=== PATIENT | male | born 1955 | race Caucasian/White ===

== ENCOUNTER 2024-01-25 21:12 | Inpatient (IN) | payer MEDICARE, SELFPAY ==
[2024-01-25] VITALS (16 sets, daily range): BP systolic 171–223; BP diastolic 90–146; PULSE 96–144; RESP 20–28; TEMP 36.6–37.2; O2SAT 95–99; BMI 21.3; BMI 20.6
[2024-01-25] MEDS: 0.9 % SODIUM CHLORIDE 1000 ml 1,000 ML IV (21:35)
[2024-01-25] MEDS: LORazepam 2 MG/ML inj 1 MG IVP ×2 (21:35→22:19)
[2024-01-25 21:48] LABS: Troponin, Point-of-Care* 0.01 ng/ml (0.01-0.04)
[2024-01-25 21:51] LABS: Lactate* 8.1 mmol/L (0.5-1.9)
[2024-01-25 22:04] LABS: Albumin* 4.9 g/dL (3.3-5.0); Chloride* 101 mmol/L (96-114)
[2024-01-25 22:05] LABS: Potassium* 3.3 mmol/L (3.6-5.1); Sodium* 140 mmol/L (135-149)
[2024-01-25 22:07] LABS: Anion Gap 18 mEq/L (7-15); Carbon Dioxide* 21 mmol/L (20-32); Creatinine* 0.7 mg/dL (0.5-1.5); Est. Creatinine Clearance* 59.98; Estimated Glomerular Filt Rate 99 ml/min
[2024-01-25 22:08] LABS: Alanine Aminotransferase* 56 U/L (4-50); Alkaline Phosphatase* 119 U/L (40-150); Aspartate Amino Transferase* 122 U/L (12-35); Bilirubin Direct* 0.3 mg/dL (0.0-0.5); Bilirubin Total* 2.3 mg/dL (0.1-1.5); Blood Urea Nitrogen* 8 mg/dL (7-30); Glucose* 178 mg/dL (60-115); Total Protein* 8.7 g/dL (6.0-8.3)
--- NOTE | 2024-01-25 22:08 | ED.GENADULT ---
HPI - General Adult General Date Seen: 01/25/24 Chief complaint: Dizziness/Vertigo Stated complaint: dizzy, shaking Time Seen by Provider: 01/25/24 21:39 Source: patient Mode of arrival: ambulatory Limitations: no limitations History of Present Illness HPI narrative: Patient is a 68-year-old male with no pertinent medical problems presenting to the emergency department for shakiness and feeling unsteady. He states started yesterday he was feeling very tired and dizzy. The dizziness has since resolved but by about 15:00 today he started noticing the hand tremors. In triage his heart rate was in the 140s and he was hypertensive. Patient admits to being an alcoholic and says he has been drinking heavily for decades. Says he drinks 3 pt of vodka a week. Still has not had any healing drink since Tuesday. He has never had symptoms like this before he states. Does state that he has gone longer periods of time without drinking without any side effects. Denies fevers, chills, chest pain, shortness of breath, weakness, abdominal pain, diarrhea, constipation, headache, vision changes. Related Data Home Medications Medication Instructions Recorded Confirmed No Known Home Medications 01/25/24 01/25/24 Allergies Allergy/AdvReac Type Severity Reaction Status Date / Time No Known Drug Allergies Allergy Verified 01/25/24 21:21 Review of Systems Status of ROS: Reports: 10 or more systems reviewed and unremarkable except as noted in History and below [facility] Social History Smoking Status: Current every day smoker What tobacco products do you use: cigarettes How often do you have a drink containing alcohol: 4 or more times a week How many standard drinks containing alcohol do you have on a typical day: 3 or 4 AUDIT-C Alcohol total score: 5 Non-prescribed substance use: denies use Exam Narrative: Exam Narrative: Const: Well-nourished, Well-developed, tremulous worsen the hand Eyes: PERRL, no conjunctival injection, and symmetrical lids HENT: Atraumatic external nose and ears. Moist mucous membranes. Neck: Symmetric, trachea midline, No thyromegaly. CVS: Tachycardic, No murmurs or gallops. Peripheral pulses 2+ and equal in all extremities RESP: Unlabored respiratory effort. Clear to auscultation bilaterally. GI: Nontender/Nondistended, No rebound or guarding. MSK:Extremities w/o deformity, Normal Active ROM Skin: Warm, Dry. No rashes or lesions. Neuro: Normal Muscle tone, No focal neurological deficits. Psych: Awake, Alert, & Oriented x3. Appropriate mood and affect. Const: Vital Signs, click to edit/add: Vital Signs - 24 hr 01/25/24 21:19 01/25/24 21:42 01/25/24 21:45 Temperature 97.9 F Pulse Rate 113 H 111 H Pulse Rate [Pulse Oximeter] 144 H Respiratory Rate 28 H Blood Pressure Blood Pressure [Ri ght Upper Arm] 180/123 H Pulse Oximetry 98 98 98 Oxygen Delivery Me thod Room Air 01/25/24 21:47 01/25/24 21:50 01/25/24 22:00 Temperature Pulse Rate 106 H 109 H Pulse Rate [Pulse Oximeter] Respiratory Rate 24 Blood Pressure 186/104 H Blood Pressure [Ri ght Upper Arm] Pulse Oximetry 98 98 99 Oxygen Delivery Me thod Room Air 01/25/24 22:03 01/25/24 22:04 01/25/24 22:15 Temperature Pulse Rate 104 H 102 H 98 Pulse Rate [Pulse Oximeter] Respiratory Rate Blood Pressure 223/146 H Blood Pressure [Ri ght Upper Arm] Pulse Oximetry 98 97 98 Oxygen Delivery Me thod 01/25/24 22:16 01/25/24 22:30 01/25/24 22:32 Temperature Pulse Rate 99 96 103 H Pulse Rate [Pulse Oximeter] Respiratory Rate Blood Pressure 173/91 H 171/90 H Blood Pressure [Ri ght Upper Arm] Pulse Oximetry 97 98 98 Oxygen Delivery Me thod Course Vital Signs Vital signs: Initial Vital Signs Temperature 97.9 F 01/25/24 21:19 Temperature Source Temporal Artery Scan 01/25/24 21:19 Pulse Rate 144 H 01/25/24 21:19 Respiratory Rate 28 H 01/25/24 21:19 Blood Pressure 180/123 H 01/25/24 21:19 Blood Pressure Mean 142 H 01/25/24 21:19 Blood Pressure Position Sitting 01/25/24 21:19 Pulse Oximetry 98 01/25/24 21:19 Oxygen Delivery Method Room Air 01/25/24 21:19 Vital Signs Temperature 97.9 F 01/25/24 21:19 Pulse Rate 144 H 01/25/24 21:19 Respiratory Rate 28 H 01/25/24 21:19 Blood Pressure 180/123 H 01/25/24 21:19 Pulse Oximetry 98 01/25/24 21:19 Oxygen Delivery Method Room Air 01/25/24 21:19 Temperature 97.9 F 01/25/24 21:19 Pulse Rate 103 H 01/25/24 22:32 Respiratory Rate 24 01/25/24 21:50 Blood Pressure 171/90 H 01/25/24 22:32 Pulse Oximetry 98 01/25/24 22:32 Oxygen Delivery Method Room Air 01/25/24 21:50 Medications Administered Medications: Generic Name Dose Route Start Last Admin Trade Name Freq PRN Reason Stop Dose Admin Sodium Chloride 1,000 mls @ 1,000 mls/hr 01/25/24 22:00 01/25/24 22:30 0.9 % Sodium Chloride 1000 Ml IV 01/25/24 22:59 Infused .Q1H ALEXEY Infusion Folic Acid 1 mg/ Multivitamins 1,011.2 mls @ 252.8 mls/hr 01/25/24 22:11 01/25/24 22:29 10 ml/ Thiamine HCl 100 mg/ IV 01/26/24 02:10 252.8 mls/hr Sodium Chloride .Q4H ALEXEY Administration Lorazepam 1 mg 01/25/24 21:50 01/25/24 21:35 Lorazepam 2 Mg/Ml Inj IVP 01/25/24 21:51 1 mg ONCE ONE Administration Lorazepam 1 mg 01/25/24 22:11 01/25/24 22:19 Lorazepam 2 Mg/Ml Inj IVP 01/25/24 22:12 1 mg ONCE ONE Administration Medical Decision Making MDM Narrative Medical decision making narrative: Patient is a 68-year-old male presenting for what appears to be alcohol withdrawal. He is a heavy drinker and has not drink now in 2 days. Is very tremulous on exam. He is tachycardic and hypertensive so I will give him Ativan. He is also likely very dehydrated so fluids were given. After the initial Ativan his heart rate improved to 104 with minimal improvement in his blood pressure. CBC, BMP, lactate, troponin, ETOH all ordered. See walk performed by nursing staff was 12. Another dose of Ativan was given and now his heart rate in the 90s and blood pressure is 176/91. He is looking and feeling much better. A banana bag was given. Lactate is 8.1 this is likely secondary to the alcohol and dehydration. His ETOH level was 0.07. CBC shows no concerning findings. He does have elevated liver enzymes and is likely developing alcoholic fatty liver disease. Due to his high risk for withdrawals he will be admitted to the hospitalist service. Lab Data Labs: Lab Results 01/25/24 01/25/24 01/25/24 Range/Units 21:33 21:33 21:33 WBC 4.57 (4.50-11.00) K/uL RBC 4.44 (4.30-5.90) m/uL Hgb 15.2 (13.5-17.5) gm/dL Hct 43.3 (37.0-53.0) % MCV 98 (80-100) fL MCH 34 (26-34) pg MCHC 35 (32-36) gm/dL RDW Coeff of Jolynn 14.2 (11.5-15.5) % Plt Count 60 L (140-440) K/uL Neut % (Auto) 52.0 (42.0-72.0) % Lymph % (Auto) 37.9 (20-44) % [place] % (Auto) 7.2 (0.0-11.0) % Eos % (Auto) 1.1 (0.0-7.0) % Baso % (Auto) 1.1 (0.0-3.0) % Neut # (Auto) 2.38 (1.7-7.0) K/uL Lymph # (Auto) 1.73 (0.90-2.90) K/uL [place] # (Auto) 0.30 (0.00-0.90) K/UL Eos # (Auto) 0.05 (0.00-0.50) K/uL Baso # (Auto) 0.05 (0.00-0.30) K/uL Abs Immat Gran (auto) 0.03 (0.00-0.30) K/uL Imm/Tot Granulo (auto) 0.7 % Sodium 140 (135-149) mmol/L Potassium 3.3 L (3.6-5.1) mmol/L Chloride 101 (96-114) mmol/L Carbon Dioxide 21 (20-32) mmol/L Anion Gap 18 H (7-15) mEq/L BUN 8 (7-30) mg/dL Creatinine 0.7 (0.5-1.5) mg/dL Estimated Creat Clear 59.98 Estimated GFR 99 ml/min Glucose 178 H (60-115) mg/dL Lactate (0.5-1.9) mmol/L Calcium 10.0 (8.4-10.6) mg/dL Total Bilirubin 2.3 H Cancelled (0.1-1.5) mg/dL Direct Bilirubin 0.3 Cancelled (0.0-0.5) mg/dL AST 122 H (12-35) U/L ALT (4-50) U/L Alkaline Phosphatase (40-150) U/L Total Protein (6.0-8.3) g/dL Albumin (3.3-5.0) g/dL Ethyl Alcohol (0.01-0.03) % POC Troponin I (0.01-0.04) ng/ml 01/25/24 01/25/24 01/25/24 Range/Units 21:33 21:33 21:33 WBC (4.50-11.00) K/uL RBC (4.30-5.90) m/uL Hgb (13.5-17.5) gm/dL Hct (37.0-53.0) % MCV (80-100) fL MCH (26-34) pg MCHC (32-36) gm/dL RDW Coeff of Jolynn (11.5-15.5) % Plt Count (140-440) K/uL Neut % (Auto) (42.0-72.0) % Lymph % (Auto) (20-44) % [place] % (Auto) (0.0-11.0) % Eos % (Auto) (0.0-7.0) % Baso % (Auto) (0.0-3.0) % Neut # (Auto) (1.7-7.0) K/uL Lymph # (Auto) (0.90-2.90) K/uL [place] # (Auto) (0.00-0.90) K/UL Eos # (Auto) (0.00-0.50) K/uL Baso # (Auto) (0.00-0.30) K/uL Abs Immat Gran (auto) (0.00-0.30) K/uL Imm/Tot Granulo (auto) % Sodium (135-149) mmol/L Potassium (3.6-5.1) mmol/L Chloride (96-114) mmol/L Carbon Dioxide (20-32) mmol/L Anion Gap (7-15) mEq/L BUN (7-30) mg/dL Creatinine (0.5-1.5) mg/dL Estimated Creat Clear Estimated GFR ml/min Glucose (60-115) mg/dL Lactate (0.5-1.9) mmol/L Calcium (8.4-10.6) mg/dL Total Bilirubin (0.1-1.5) mg/dL Direct Bilirubin (0.0-0.5) mg/dL AST Cancelled (12-35) U/L ALT 56 H Cancelled (4-50) U/L Alkaline Phosphatase 119 Cancelled (40-150) U/L Total Protein 8.7 H (6.0-8.3) g/dL Albumin (3.3-5.0) g/dL Ethyl Alcohol (0.01-0.03) % POC Troponin I (0.01-0.04) ng/ml 01/25/24 01/25/24 01/25/24 Range/Units 21:33 21:33 21:33 WBC (4.50-11.00) K/uL RBC (4.30-5.90) m/uL Hgb (13.5-17.5) gm/dL Hct (37.0-53.0) % MCV (80-100) fL MCH (26-34) pg MCHC (32-36) gm/dL RDW Coeff of Jolynn (11.5-15.5) % Plt Count (140-440) K/uL Neut % (Auto) (42.0-72.0) % Lymph % (Auto) (20-44) % [place] % (Auto) (0.0-11.0) % Eos % (Auto) (0.0-7.0) % Baso % (Auto) (0.0-3.0) % Neut # (Auto) (1.7-7.0) K/uL Lymph # (Auto) (0.90-2.90) K/uL [place] # (Auto) (0.00-0.90) K/UL Eos # (Auto) (0.00-0.50) K/uL Baso # (Auto) (0.00-0.30) K/uL Abs Immat Gran (auto) (0.00-0.30) K/uL Imm/Tot Granulo (auto) % Sodium (135-149) mmol/L Potassium (3.6-5.1) mmol/L Chloride (96-114) mmol/L Carbon Dioxide (20-32) mmol/L Anion Gap (7-15) mEq/L BUN (7-30) mg/dL Creatinine (0.5-1.5) mg/dL Estimated Creat Clear Estimated GFR ml/min Glucose (60-115) mg/dL Lactate (0.5-1.9) mmol/L Calcium (8.4-10.6) mg/dL Total Bilirubin (0.1-1.5) mg/dL Direct Bilirubin (0.0-0.5) mg/dL AST (12-35) U/L ALT (4-50) U/L Alkaline Phosphatase (40-150) U/L Total Protein Cancelled (6.0-8.3) g/dL Albumin 4.9 Cancelled (3.3-5.0) g/dL Ethyl Alcohol 0.07 H Cancelled (0.01-0.03) % POC Troponin I (0.01-0.04) ng/ml 01/25/24 01/25/24 Range/Units 21:42 21:46 WBC (4.50-11.00) K/uL RBC (4.30-5.90) m/uL Hgb (13.5-17.5) gm/dL Hct (37.0-53.0) % MCV (80-100) fL MCH (26-34) pg MCHC (32-36) gm/dL RDW Coeff of Jolynn (11.5-15.5) % Plt Count (140-440) K/uL Neut % (Auto) (42.0-72.0) % Lymph % (Auto) (20-44) % [place] % (Auto) (0.0-11.0) % Eos % (Auto) (0.0-7.0) % Baso % (Auto) (0.0-3.0) % Neut # (Auto) (1.7-7.0) K/uL Lymph # (Auto) (0.90-2.90) K/uL [place] # (Auto) (0.00-0.90) K/UL Eos # (Auto) (0.00-0.50) K/uL Baso # (Auto) (0.00-0.30) K/uL Abs Immat Gran (auto) (0.00-0.30) K/uL Imm/Tot Granulo (auto) % Sodium (135-149) mmol/L Potassium (3.6-5.1) mmol/L Chloride (96-114) mmol/L Carbon Dioxide (20-32) mmol/L Anion Gap (7-15) mEq/L BUN (7-30) mg/dL Creatinine (0.5-1.5) mg/dL Estimated Creat Clear Estimated GFR ml/min Glucose (60-115) mg/dL Lactate 8.1 H* (0.5-1.9) mmol/L Calcium (8.4-10.6) mg/dL Total Bilirubin (0.1-1.5) mg/dL Direct Bilirubin (0.0-0.5) mg/dL AST (12-35) U/L ALT (4-50) U/L Alkaline Phosphatase (40-150) U/L Total Protein (6.0-8.3) g/dL Albumin (3.3-5.0) g/dL Ethyl Alcohol (0.01-0.03) % POC Troponin I 0.01 (0.01-0.04) ng/ml ECG Data Attestation: I personally reviewed and interpreted this ECG as follows: Prior ECG tracings: not available for review Interpretation: Sinus tachycardia with rate 134 beats per minute, normal intervals, normal axis, no ST or T-wave abnormalities Discharge Plan Discharge Clinical Impression: Alcohol withdrawal Patient Disposition: Admitted As Observation Condition: Improved
[2024-01-25 22:09] LABS: Ethanol* 0.07 % (0.01-0.03)
[2024-01-25 22:14] LABS: Basophils Absolute Auto 0.05 K/uL (0.00-0.30); Basophils Percent Auto 1.1 % (0.0-3.0); Eosinophils Absolute Auto 0.05 K/uL (0.00-0.50); Eosinophils Percent Auto 1.1 % (0.0-7.0); Hematocrit 43.3 % (37.0-53.0); Hemoglobin* 15.2 gm/dL (13.5-17.5); Immature Granulocytes Abs Auto 0.03 K/uL (0.00-0.30); Immature Granulocytes Pct Auto 0.7 %; Lymphocytes Absolute Auto 1.73 K/uL (0.90-2.90); Lymphocytes Percent Auto 37.9 % (20-44); Mean Corpuscular HGB Conc 35 gm/dL (32-36); Mean Corpuscular Hemoglobin 34 pg (26-34); Mean Corpuscular Volume 98 fL (80-100); Monocytes Percent Auto 7.2 % (0.0-11.0); Neutrophils Absolute Auto 2.38 K/uL (1.7-7.0); Platelet Count* 60 K/uL (140-440); RDW Coefficient of Variation % 14.2 % (11.5-15.5); Red Blood Count 4.44 m/uL (4.30-5.90); White Blood Count* 4.57 K/uL (4.50-11.00)
[2024-01-25 22:15] LABS: Slide Review Reflex No
[2024-01-25 23:38] LABS: Lactate* 4.5 mmol/L (0.5-1.9)
[2024-01-26] VITALS (18 sets, daily range): BP systolic 92–171; BP diastolic 65–117; PULSE 67–100; RESP 16–24; TEMP 36.4–36.8; O2SAT 93–97; BMI 20.7
--- NOTE | 2024-01-26 00:08 | PM.IMHP1 ---
Hospitalist- H&P: HPI History of Present Illness Date Seen: 01/26/24 Chief complaint: dizzy, shaking Narrative: Otis Patino is a 68 year old male who presents to the emergency room this evening for weakness and bilateral hand tremors. Symptoms have been present for 1-2 days. No fevers, no chest pain, no trouble breathing, no cough. No abdominal pain or urinary symptoms. He was worried about alcohol withdrawal; long history of alcohol overuse and last drink was 01/23 (Tuesday) morning. ER course and findings: - elevated lactate, K of 3.3, platelets 60, elevated AST/ALT/bilirubin - sinus tachycardia, elevated BP, no acute abnormalities on EKG - lactate improved after 1L of NS, banana bag initiated - patient scored 12 on CIWA in ED - ETOH 0.07 Given patient's withdrawal, liver disease, nutritional status, he is admitted to the hospital. Chata arrives soon after admission; she had been in [place] this week for a [employer]zero tournament and just returned this evening. She notes that patient has a long history of alcohol use disorder, has never been hospitalized for withdrawal in the past. No other chronic medical conditions or daily medications. Recently moved to [place] from [place], plans to see Dr. Graff for Primary Care. Review of Systems Status of ROS: Reports: 10 or more systems reviewed and unremarkable except as noted in History and below [facility] Medical History (Updated 01/26/24 @ 00:18 by Catherine Rdz MD) Alcohol use disorder ?F10.90 - Alcohol use, unspecified, uncomplicated (ICD-10) Social History (Updated 01/26/24 @ 00:19 by Catherine Rdz MD) Narrative: Recently moved to [place] from [place], lives with Chata. Daily ETOH use. What is your current living situation?: I presently have a place to live Problems where you live: no known problems Problems where you live details: N/A In the past 12 months, utilities in danger of being shut off: no In past 12 months, lack of transportation kept you from medical appts, meetings, work, or getting things needed for daily living: no In the past 12 mos, have been you worried that your food would run out before you had money to buy more?: never true In the past 12 mos, the food you bought just didn't last and you didn't have money to buy more?: never true Highest level of school completed/degree received: 12th grade, no diploma Smoking Status: Current every day smoker What tobacco products do you use: cigarettes Smoking packs per day: 0.5 Smoking cigarettes per day: 10.0 How often do you have a drink containing alcohol: 4 or more times a week Alcohol type: hard liquor Alcohol type details: 1 pint vodka/day How many standard drinks containing alcohol do you have on a typical day: 5 or 6 How often do you have six or more drinks on one occasion: Weekly AUDIT-C Alcohol total score: 9 Non-prescribed substance use: denies use Caffeine: Yes How often does anyone, including family, friends and others, physically hurt you: never How often does anyone, including family, friends and others, insult or talk down to you: never How often does anyone, including family, friends and others, threaten you with harm: never How often does anyone, including family, friends and others, scream or curse at you: never service: No Meds Home Medications and Allergies Home Medications Medication Instructions Recorded Confirmed Type No Known Home Medications 01/25/24 01/25/24 History Allergies Allergy/AdvReac Type Severity Reaction Status Date / Time No Known Drug Allergies Allergy Verified 01/25/24 21:21 Exam Narrative: Exam Narrative: GEN: Alert and answering questions appropriately with occasional psychomotor slowing HEENT: EOMIs bilaterally, no scleral icterus CV: Sinus tachycardia with rate in the 110s during my exam, no concerning murmurs R: LCTA bilaterally without concerning wheezing Ab: mild distention, no ttp, + hepatomegaly Ext: wwp, no concerning edema Skin: No concerning skin lesions or rashes on exposed skin Neuro: BUE tremors, no asterixis, gait not observed Psych: Appropriate Const: Vital Signs, click to edit/add: Vital Signs - 24 hr 01/25/24 21:19 01/25/24 21:42 01/25/24 21:45 Temperature 97.9 F Pulse Rate 113 H 111 H Pulse Rate [Left P ulse Oximeter] Pulse Rate [Pulse Oximeter] 144 H Respiratory Rate 28 H Blood Pressure Blood Pressure [Ri ght Arm] Blood Pressure [Ri ght Upper Arm] 180/123 H Pulse Oximetry 98 98 [facility] 01/25/24 21:47 01/25/24 21:50 01/25/24 22:00 Temperature Pulse Rate 106 H 109 H Pulse Rate [Left P ulse Oximeter] Pulse Rate [Pulse Oximeter] Respiratory Rate 24 Blood Pressure 186/104 H Blood Pressure [Ri ght Arm] Blood Pressure [Ri ght Upper Arm] Pulse Oximetry 98 98 [facility] 01/25/24 22:03 01/25/24 22:04 01/25/24 22:15 Temperature Pulse Rate 104 H 102 H 98 Pulse Rate [Left P ulse Oximeter] Pulse Rate [Pulse Oximeter] Respiratory Rate Blood Pressure 223/146 H Blood Pressure [Ri ght Arm] Blood Pressure [Ri ght Upper Arm] Pulse Oximetry 98 97 [facility] 01/25/24 22:16 01/25/24 22:30 01/25/24 22:32 Temperature Pulse Rate 99 96 103 H Pulse Rate [Left P ulse Oximeter] Pulse Rate [Pulse Oximeter] Respiratory Rate Blood Pressure 173/91 H 171/90 H Blood Pressure [Ri ght Arm] Blood Pressure [Ri ght Upper Arm] Pulse Oximetry 97 98 [facility] 01/25/24 22:33 01/25/24 22:45 01/25/24 23:00 Temperature 98.9 F Pulse Rate 101 H 97 Pulse Rate [Left P ulse Oximeter] 102 H Pulse Rate [Pulse Oximeter] Respiratory Rate 20 Blood Pressure Blood Pressure [Ri ght Arm] 178/100 H Blood Pressure [Ri ght Upper Arm] Pulse Oximetry 99 99 97 [facility] 01/25/24 23:35 Temperature 98.9 F Pulse Rate Pulse Rate [Left P ulse Oximeter] 102 H Pulse Rate [Pulse Oximeter] Respiratory Rate 20 Blood Pressure Blood Pressure [Ri ght Arm] 178/100 H Blood Pressure [Ri ght Upper Arm] Pulse Oximetry 97 Oxygen Delivery [facility] Room Air Hospitalist - H&P: Result Labs Labs: Short CBC 01/25/24 Range/Units 21:33 WBC 4.57 (4.50-11.00) K/uL Hgb 15.2 (13.5-17.5) gm/dL Hct 43.3 (37.0-53.0) % Plt Count 60 L (140-440) K/uL BMP 01/25/24 21:33 Sodium 140 Potassium 3.3 L Chloride 101 Carbon Dioxide 21 BUN 8 Creatinine 0.7 Glucose 178 H Calcium 10.0 Liver Function 01/25/24 01/25/24 01/25/24 Range/Units 21:33 21:33 21:33 Total Bilirubin 2.3 H Cancelled (0.1-1.5) mg/dL Direct Bilirubin 0.3 Cancelled (0.0-0.5) mg/dL AST 122 H (12-35) U/L ALT (4-50) U/L Alkaline Phosphatase (40-150) U/L Albumin (3.3-5.0) g/dL 01/25/24 01/25/24 01/25/24 Range/Units 21:33 21:33 21:33 Total Bilirubin (0.1-1.5) mg/dL Direct Bilirubin (0.0-0.5) mg/dL AST Cancelled (12-35) U/L ALT 56 H Cancelled (4-50) U/L Alkaline Phosphatase 119 Cancelled (40-150) U/L Albumin 4.9 (3.3-5.0) g/dL 01/25/24 Range/Units 21:33 Total Bilirubin (0.1-1.5) mg/dL Direct Bilirubin (0.0-0.5) mg/dL AST (12-35) U/L ALT (4-50) U/L Alkaline Phosphatase (40-150) U/L Albumin Cancelled (3.3-5.0) g/dL Assessment and Plan Assessment and plan (1) Alcohol withdrawal: Problem comment: - follow CIWA, treat with Phenobarbital, Ativan, Gabapentin - concerning given severity of symptoms with + ETOH level; discussed risks of withdrawal with , she is amenable to transfer to higher level of care if indicated Status: Acute (2) Alcohol use disorder: Problem comment: - with sequelae of thrombocytopenia, elevated LFTs, hepatomegaly - will obtain u/s to evaluate for cirrhosis Status: Acute Plan - per above - Teds for ppx (Lovenox contraindicated with thrombocytopenia)
[2024-01-26] MEDS: PANTOPRAZOLE SODIUM 40 MG INJ IVP (00:30)
[2024-01-26] MEDS: PHENobarbitaL 260 MG in 0.9 % SODIUM CHLORIDE 100 ml 100 ML 208 MG IVPB (00:30)
[2024-01-26] MEDS: LORazepam 2 MG/ML inj IVP (02:26)
[2024-01-26] MEDS: 5 % DEX/0.9 SOD CHL+KCL 20 mEq 1,000 ML 125 ML IV ×2 (03:08→12:10)
[2024-01-26 06:40] LABS: Eosinophils Percent Auto 1.5 % (0.0-7.0); Hematocrit 36.9 % (37.0-53.0); Hemoglobin* 12.9 gm/dL (13.5-17.5); Lymphocytes Percent Auto 30.2 % (20-44); Mean Corpuscular HGB Conc 35 gm/dL (32-36); Mean Corpuscular Hemoglobin 34 pg (26-34); Mean Corpuscular Volume 98 fL (80-100); Monocytes Percent Auto 10.9 % (0.0-11.0); Neutrophils Percent Auto 56.4 % (42.0-72.0); Red Blood Count 3.76 m/uL (4.30-5.90); White Blood Count* 2.02 K/uL (4.50-11.00)
--- NOTE | 2024-01-26 06:50 | PC.NURSE ---
07:A x 1-2 with gb and walker, standing at bedside to use urinal, pt unsteady on feet. Ora at bedside throughout shift. BUE tremulous. Pt slow to respond, pt looks over to his to answer on his behalf or to assist with communication. Ativan given x 1 per CIWA protocol. ?
[2024-01-26 06:58] LABS: INR 1.35 (0.91-1.10); Prothrombin Time 17.6 Seconds
[2024-01-26 06:59] LABS: Albumin* 3.7 g/dL (3.3-5.0); Chloride* 107 mmol/L (96-114); Potassium* 3.4 mmol/L (3.6-5.1); Sodium* 137 mmol/L (135-149)
[2024-01-26 07:01] LABS: Creatinine* 0.7 mg/dL (0.5-1.5); Est. Creatinine Clearance* 58.21; Estimated Glomerular Filt Rate 99 ml/min
[2024-01-26 07:02] LABS: Alanine Aminotransferase* 45 U/L (4-50); Alkaline Phosphatase* 87 U/L (40-150); Anion Gap 4 mEq/L (7-15); Aspartate Amino Transferase* 88 U/L (12-35); Bilirubin Direct* 0.2 mg/dL (0.0-0.5); Bilirubin Total* 2.9 mg/dL (0.1-1.5); Blood Urea Nitrogen* 5 mg/dL (7-30); Calcium* 8.7 mg/dL (8.4-10.6); Carbon Dioxide* 26 mmol/L (20-32); Glucose* 134 mg/dL (60-115); Total Protein* 6.6 g/dL (6.0-8.3)
[2024-01-26 07:39] LABS: Platelet Count* 27 K/uL (140-440)
[2024-01-26 07:40] LABS: Slide Review Reflex Yes
[2024-01-26 07:41] LABS: Slide Review Acceptable Review (Acceptable)
[2024-01-26 08:00] LABS: Lactate* 1.1 mmol/L (0.5-1.9)
[2024-01-26 08:00] LABS: Magnesium* 1.5 mg/dL (1.5-2.6)
[2024-01-26] MEDS: THIAMINE 250 MG in 0.9 % SODIUM CHLORIDE 100 ml 100 ML 102.5 MG IVPB ×3 (08:59→20:44)
[2024-01-26] MEDS: FOLIC ACID 1 MG TABLET PO (09:00)
[2024-01-26] MEDS: POTASSIUM CHLORIDE 10 MEQ CAPSULE ER 40 MEQ PO (09:00)
[2024-01-26] MEDS: GABAPENTIN 100 MG CAPSULE PO ×3 (09:00→20:44)
[2024-01-26] MEDS: SODIUM CHLORIDE 0.9 % (FLUSH) 10 ML SYRINGE 5 ML IVF (09:02)
--- NOTE | 2024-01-26 10:01 | PM.IMPN1 ---
Progress Note: A&P Assessment and plan (1) Alcohol withdrawal: Problem details: - follow CIWA, treat with Phenobarbital, Ativan, Gabapentin - concerning given severity of symptoms with + ETOH level; discussed risks of withdrawal with , she is amenable to transfer to higher level of care if indicated - lactate down trending - continue IVF, MVI, thiamine, folic acid - PT/OT consults when appropriate Status: Acute (2) Alcohol use disorder: Problem details: - with sequelae of thrombocytopenia, elevated LFTs, hepatomegaly - ultrasound shows liver is abnormal. Imaging features suggest cirrhosis or other infiltrative disorder such as chronic hepatitis. No dominant focal mass and no intrahepatic biliary ductal dilation. Sludge within the gallbladder. No evidence of acute cholecystitis or common duct obstruction. Ascites. 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 No occult active bleed, consider transfusion if <[id number] - not currently on ASA, enoxaparin - continue to monitor Status: Acute (4) Cirrhosis: Problem details: - in setting of alcohol use disorder, with abnormal LFTs, thrombocytopenia, US imaging - will need outpatient follow-up with PCP/GI Status: Acute (5) Hypokalemia: Problem details: - replace and monitor Status: Acute Plan SCDs for VTE PPX CIWA Time Spent With Patient Total time spent: Total time spent caring for the patient today was 45 minutes. This includes time spent for the visit reviewing the chart, time spent during the visit, time spent after the visit and documentation and planning in coordination of care. Subjective Date Seen: 01/26/24 Interval history: Patient is seen with at bedside. Sleeping, easily awakens. Reports feeling okay this morning. Denies headache or dizziness. Denies chest pain or tightness. Denies nausea, vomiting. Does not have much of an appetite. His tells me he does not eat much at home either. describes him as a ?secret drinker. He will have episodes of decreased responsiveness. EMS has bed to the house previously to assess this. Patient denies history of DTs or withdrawal seizures. Continues on IVF, CIWA, mild hypokalemia. Pancytopenic this morning. Exam Narrative: Exam Narrative: PHYSICAL EXAM General: Sleeping, easily awakens, drifts back to sleep, no apparent distress HEENT: Normocephalic, atraumatic, sclera white, EOMI Cardiovascular: RRR, S1S2. No pitting edema Pulmonary: CTA bilaterally without rhonchi, rales, expiratory wheezes. No dyspnea Abdominal: Soft, nondistended, NTTP Neurological: Alert, answering questions appropriately, cranial nerves intact, no focal findings Extremities: No gross joint deformity or swelling. AROMI. Neurovascularly intact Skin: Warm, dry. Const: Vital Signs, click to edit/add: Vital Signs - 24 hr 01/25/24 21:19 01/25/24 21:42 01/25/24 21:45 Temperature 97.9 F Pulse Rate 113 H 111 H Pulse Rate [Left P ulse Oximeter] Pulse Rate [Pulse Oximeter] 144 H Respiratory Rate 28 H Blood Pressure Blood Pressure [Ri ght Arm] Blood Pressure [Ri ght Upper Arm] 180/123 H Pulse Oximetry 98 98 [facility] 01/25/24 21:47 01/25/24 21:50 01/25/24 22:00 Temperature Pulse Rate 106 H 109 H Pulse Rate [Left P ulse Oximeter] Pulse Rate [Pulse Oximeter] Respiratory Rate 24 Blood Pressure 186/104 H Blood Pressure [Ri ght Arm] Blood Pressure [Ri ght Upper Arm] Pulse Oximetry 98 98 99 Oxygen Delivery [facility] Room Air 01/25/24 22:03 01/25/24 22:04 01/25/24 22:15 Temperature Pulse Rate 104 H 102 H 98 Pulse Rate [Left P ulse Oximeter] Pulse Rate [Pulse Oximeter] Respiratory Rate Blood Pressure 223/146 H Blood Pressure [Ri ght Arm] Blood Pressure [Ri ght Upper Arm] Pulse Oximetry 98 97 98 [facility] 01/25/24 22:16 01/25/24 22:30 01/25/24 22:32 Temperature Pulse Rate 99 96 103 H Pulse Rate [Left P ulse Oximeter] Pulse Rate [Pulse Oximeter] Respiratory Rate Blood Pressure 173/91 H 171/90 H Blood Pressure [Ri ght Arm] Blood Pressure [Ri ght Upper Arm] Pulse Oximetry 97 98 98 [facility] 01/25/24 22:33 01/25/24 22:45 01/25/24 23:00 Temperature 98.9 F Pulse Rate 101 H 97 Pulse Rate [Left P ulse Oximeter] 102 H Pulse Rate [Pulse Oximeter] Respiratory Rate 20 Blood Pressure Blood Pressure [Ri ght Arm] 178/100 H Blood Pressure [Ri ght Upper Arm] Pulse Oximetry 99 99 97 Oxygen Delivery Me thod Room Air 01/25/24 23:35 01/25/24 23:35 01/26/24 00:00 Temperature 98.9 F 98.1 F Pulse Rate Pulse Rate [Left P ulse Oximeter] 102 H 97 Pulse Rate [Pulse Oximeter] Respiratory Rate 20 20 18 Blood Pressure Blood Pressure [Ri ght Arm] 178/100 H 171/93 H Blood Pressure [Ri ght Upper Arm] Pulse Oximetry 97 95 96 Oxygen Delivery Nd [facility]od Room Air Room Air Room Air 01/26/24 01:00 01/26/24 01:03 01/26/24 02:00 Temperature 98.3 F 98.2 F Pulse Rate 85 Pulse Rate [Left P ulse Oximeter] 96 100 Pulse Rate [Pulse Oximeter] Respiratory Rate 18 20 Blood Pressure Blood Pressure [Ri ght Arm] 158/82 H 157/97 H Blood Pressure [Ri ght Upper Arm] Pulse Oximetry 96 96 [facility] Room Air 01/26/24 03:00 01/26/24 04:00 01/26/24 05:00 Temperature 97.6 F 98 F Pulse Rate Pulse Rate [Left P ulse Oximeter] 80 80 86 Pulse Rate [Pulse Oximeter] Respiratory Rate 20 20 24 Blood Pressure Blood Pressure [Ri ght Arm] 155/85 H 92/65 159/97 H Blood Pressure [Ri ght Upper Arm] Pulse Oximetry 95 93 95 Oxygen Delivery Me thod Room Air Room Air Room Air 01/26/24 06:00 01/26/24 08:00 Temperature 97.7 F Pulse Rate Pulse Rate [Left P ulse Oximeter] 75 69 Pulse Rate [Pulse Oximeter] Respiratory Rate 20 16 Blood Pressure Blood Pressure [Ri ght Arm] 162/89 H 163/113 H Blood Pressure [Ri ght Upper Arm] Pulse Oximetry 97 96 Oxygen Delivery Me thod Room Air Room Air Labs Labs: Laboratory Results - last 24 hr 01/25/24 01/25/24 01/25/24 21:33 21:33 21:33 WBC 4.57 RBC 4.44 Hgb 15.2 Hct 43.3 MCV 98 MCH 34 MCHC 35 RDW Coeff of Jolynn 14.2 Plt Count 60 L Neut % (Auto) 52.0 Lymph % (Auto) 37.9 [place] % (Auto) 7.2 Eos % (Auto) 1.1 Baso % (Auto) 1.1 Neut # (Auto) 2.38 Lymph # (Auto) 1.73 [place] # (Auto) 0.30 Eos # (Auto) 0.05 Baso # (Auto) 0.05 Abs Immat Gran (auto) 0.03 Imm/Tot Granulo (auto) 0.7 Diff Slide Review INR Sodium 140 Potassium 3.3 L Chloride 101 Carbon Dioxide 21 Anion Gap 18 H BUN 8 Creatinine 0.7 Estimated Creat Clear 59.98 Estimated GFR 99 Glucose 178 H Lactate Calcium 10.0 Magnesium Total Bilirubin 2.3 H Cancelled Direct Bilirubin 0.3 Cancelled AST 122 H ALT Alkaline Phosphatase Total Protein Albumin Ethyl Alcohol Lab Acknowledgement POC Troponin I 01/25/24 01/25/24 01/25/24 21:33 21:33 21:33 WBC RBC Hgb Hct MCV MCH MCHC RDW Coeff of Jolynn Plt Count Neut % (Auto) Lymph % (Auto) [place] % (Auto) Eos % (Auto) Baso % (Auto) Neut # (Auto) Lymph # (Auto) [place] # (Auto) Eos # (Auto) Baso # (Auto) Abs Immat Gran (auto) Imm/Tot Granulo (auto) Diff Slide Review INR Sodium Potassium Chloride Carbon Dioxide Anion Gap BUN Creatinine Estimated Creat Clear Estimated GFR Glucose Lactate Calcium Magnesium Total Bilirubin Direct Bilirubin AST Cancelled ALT 56 H Cancelled Alkaline Phosphatase 119 Cancelled Total Protein 8.7 H Albumin Ethyl Alcohol Lab Acknowledgement POC Troponin I 01/25/24 01/25/24 01/25/24 21:33 21:33 21:33 WBC RBC Hgb Hct MCV MCH MCHC RDW Coeff of Jolynn Plt Count Neut % (Auto) Lymph % (Auto) [place] % (Auto) Eos % (Auto) Baso % (Auto) Neut # (Auto) Lymph # (Auto) [place] # (Auto) Eos # (Auto) Baso # (Auto) Abs Immat Gran (auto) Imm/Tot Granulo (auto) Diff Slide Review INR Sodium Potassium Chloride Carbon Dioxide Anion Gap BUN Creatinine Estimated Creat Clear Estimated GFR Glucose Lactate Calcium Magnesium Total Bilirubin Direct Bilirubin AST ALT Alkaline Phosphatase Total Protein Cancelled Albumin 4.9 Cancelled Ethyl Alcohol 0.07 H Cancelled Lab Acknowledgement POC Troponin I 01/25/24 01/25/24 01/25/24 21:42 21:46 23:30 WBC RBC Hgb Hct MCV MCH MCHC RDW Coeff of Jolynn Plt Count Neut % (Auto) Lymph % (Auto) [place] % (Auto) Eos % (Auto) Baso % (Auto) Neut # (Auto) Lymph # (Auto) [place] # (Auto) Eos # (Auto) Baso # (Auto) Abs Immat Gran (auto) Imm/Tot Granulo (auto) Diff Slide Review INR Sodium Potassium Chloride Carbon Dioxide Anion Gap BUN Creatinine Estimated Creat Clear Estimated GFR Glucose Lactate 8.1 H* 4.5 H* Calcium Magnesium Total Bilirubin Direct Bilirubin AST ALT Alkaline Phosphatase Total Protein Albumin Ethyl Alcohol Lab Acknowledgement POC Troponin I 0.01 01/26/24 01/26/24 01/26/24 06:14 07:19 07:48 WBC 2.02 L RBC 3.76 L Hgb 12.9 L Hct 36.9 L MCV 98 MCH 34 MCHC 35 RDW Coeff of Jolynn 14.0 Plt Count 27 L* Neut % (Auto) 56.4 Lymph % (Auto) 30.2 [place] % (Auto) 10.9 Eos % (Auto) 1.5 Baso % (Auto) 1.0 Neut # (Auto) 1.10 L Lymph # (Auto) 0.60 L [place] # (Auto) 0.20 Eos # (Auto) 0.00 Baso # (Auto) 0.00 Abs Immat Gran (auto) 0.00 Imm/Tot Granulo (auto) 0.0 Diff Slide Review Acceptable Review INR 1.35 H Sodium 137 Potassium 3.4 L Chloride 107 Carbon Dioxide 26 Anion Gap 4 L BUN 5 L Creatinine 0.7 Estimated Creat Clear 58.21 Estimated GFR 99 Glucose 134 H Lactate 1.1 Calcium 8.7 Magnesium 1.5 Total Bilirubin 2.9 H Direct Bilirubin 0.2 AST 88 H ALT 45 Alkaline Phosphatase 87 Total Protein 6.6 Albumin 3.7 Ethyl Alcohol Lab Acknowledgement Test Added POC Troponin I
--- NOTE | 2024-01-26 10:15 | US_ITS ---
Patient: MICHAEL MÉNDEZ Facility:?[facility] Patient ID:?[id number] Site Patient ID:?[id number]. Site :?[id number] Study:?US-Abdomen RUQ-01/26/2024 8:05:29 AM Ordering Physician:?JULIA SAMPSON M.D. Final Report: Indication: Abnormal liver enzymes. Technique: Sonography of the abdomen was performed limited to the structures discussed below. Comparison: There are no prior studies currently available for comparison Findings: The liver is heterogeneous in echotexture and there is probably enlargement of the left lobe. There is a nodular serosal free edge. This pattern is usually due to cirrhosis though other infiltrative disorders especially chronic Hepatitis can create this appearance. No dominant focal mass and no intrahepatic biliary ductal dilation. The common duct measures 4 millimeters which is normal. There is sludge within the gallbladder but no wall thickening or sonographic Charles`s sign. No stones identified Pancreas poorly visualized. Right kidney unremarkable in size and appearance measuring 10.3 x 4.1 x 5.3 centimeters. No hydronephrosis. Atherosclerotic changes of the aorta. Mild ascites. Impression: 1. The liver is abnormal. Imaging features suggest cirrhosis or other infiltrative disorder such as chronic hepatitis. No dominant focal mass and no intrahepatic biliary ductal dilation. 2. Sludge within the gallbladder. No evidence of acute cholecystitis or common duct obstruction. 3. Ascites. 4. Poorly seen pancreas. Normal-appearing kidney. Dictated by Darell Montalvo MD @ 01/26/2024 8:20:01 AM Signed by:?Darell Montalvo MD @01/26/2024 8:20:01 AM (Electronic Signature)
[2024-01-26] MEDS: MAGNESIUM IV 2 GM/50 ML PIGGYBACK IVPB (12:18)
--- NOTE | 2024-01-26 14:22 | PC.SOCIAL ---
technical services representative consult: clerical and office support workers met with pt and his and gave pt resources for alcohol treatment programs that are inpatient and outpatient in and around [facility]. Pt stated that he was not interested in treatment at this time, but did take the information from this worker to review/look over later and discuss with his . Social work to follow-up as needed.
--- NOTE | 2024-01-26 19:34 | PC.NURSE ---
End of Shift: Patient pleasant and cooperative, A&O. VSS, afebrile. Patient denies pain this shift. Patient denies N/V, able to tolerate regular diet. Ambulates within room with SBA, gait belt, and walker. Patient sleepy,?spontaneous and not using call light appropriate in morning hours, as day progressed patient became more alert and aware, began using call light appropriately for bathroom use. at bedside, supportive and encouraging of healthy lifestyle, discussed alcohol treatment, states ?Patient wound not be receptive to inpatient alcohol treatment, but rather outpatient with support of herself and his brother??
[2024-01-27] MEDS: 5 % DEX/0.9 SOD CHL+KCL 20 mEq 1,000 ML 125 ML IV (00:05)
[2024-01-27] MEDS: PANTOPRAZOLE SODIUM 40 MG INJ IVP (00:05)
[2024-01-27] MEDS: SODIUM CHLORIDE 0.9 % (FLUSH) 10 ML SYRINGE 5 ML IVF (00:05)
[2024-01-27 03:10] VITALS: BP 147/83; PULSE 80; RESP 18; TEMP 36.6; O2SAT 97
--- NOTE | 2024-01-27 06:14 | PC.NURSE ---
SHIFT NOTE : Pt pleasant, much more alert this AM and clearer speech. Denies pain, SOB, CP, N/V, dizziness, ALCANTAR and hallucinations. CIWA scores 1-2, no Ativan required. Pt up with a gait belt, 1 assist and a walker, a bit tremulous when up. Tele reads NSR. Oxygen saturations >90% on RA, afebrile. Pt reports sleeping well.
[2024-01-27 06:32] LABS: Hematocrit 36.9 % (37.0-53.0); Hemoglobin* 12.7 gm/dL (13.5-17.5); Mean Corpuscular HGB Conc 34 gm/dL (32-36); Mean Corpuscular Hemoglobin 34 pg (26-34); Mean Corpuscular Volume 100 fL (80-100); Red Blood Count 3.69 m/uL (4.30-5.90); White Blood Count* 2.49 K/uL (4.50-11.00)
[2024-01-27 06:56] LABS: Albumin* 3.4 g/dL (3.3-5.0); Chloride* 109 mmol/L (96-114)
[2024-01-27 06:57] LABS: Sodium* 135 mmol/L (135-149)
[2024-01-27 06:59] LABS: Alkaline Phosphatase* 87 U/L (40-150); Anion Gap 3 mEq/L (7-15); Aspartate Amino Transferase* 94 U/L (12-35); Bilirubin Direct* 0.2 mg/dL (0.0-0.5); Bilirubin Total* 2.7 mg/dL (0.1-1.5); Blood Urea Nitrogen* 3 mg/dL (7-30); Carbon Dioxide* 23 mmol/L (20-32); Creatinine* 0.8 mg/dL (0.5-1.5); Est. Creatinine Clearance* 58.21; Estimated Glomerular Filt Rate 95 ml/min; Total Protein* 6.3 g/dL (6.0-8.3)
[2024-01-27 07:00] VITALS: BP 140/80; PULSE 81; RESP 18; TEMP 36.9; O2SAT 96
[2024-01-27 07:00] LABS: Alanine Aminotransferase* 44 U/L (4-50); Glucose* 119 mg/dL (60-115)
[2024-01-27 07:05] LABS: Platelet Count* 24 K/uL (140-440); Slide Review Reflex Yes
[2024-01-27 07:06] LABS: Slide Review Acceptable Review (Acceptable)
[2024-01-27 08:59] VITALS: RESP 18
[2024-01-27 09:00] VITALS: PULSE 74; RESP 18; O2SAT 96
[2024-01-27] MEDS: GABAPENTIN 100 MG CAPSULE PO (09:22)
[2024-01-27] MEDS: FOLIC ACID 1 MG TABLET PO (09:22)
[2024-01-27] MEDS: THIAMINE 250 MG in 0.9 % SODIUM CHLORIDE 100 ml 100 ML 102.5 MG IVPB (09:22)
--- NOTE | 2024-01-27 10:52 | P.DS_ITS ---
DS: Providers Provider Date Seen: 01/27/24 Date of admission: 01/26/24 00:02 Primary care physician: Chris Graff MD Admitting Clinician: Lisa Pacheco Consults: 01/26/24 00:02 Consult to Nutrition [CONS] Routine Comment: Reason for consult:: Nutritional Consult Consult to Physical Therapy [CONS] Routine Comment: Reason(s) for PT Consult:: Evaluate and Treat Any Restrictions?:: No Restrictions Consult to Travel Assistant [CONS] Routine Comment: Reason for Consult:: Social Service Consult Substance Abuse Screening 01/26/24 00:05 Consult to Occupational Therapy [CONS] Routine Comment: Reason(s) for OT Consult:: Evaluate and Treat Any Restrictions?:: No Restrictions Attending Physician on discharge: HERACLIO Myrick, [facility] Date of Discharge: 01/27/24 DS: Diagnosis Discharge Diagnosis (1) Alcohol withdrawal: Status: Acute Problem details: Blood alcohol 0.07 on admission. Last drink reported to be 01/24/2024. Treated with phenobarbital, Ativan, gabapentin. Usual thiamine, MVI, folic acid. CIWA scores improved from 10-12 to 1-2. On day of discharge, significantly improved, asymptomatic. Patient and in agreement to discharge home. (2) Alcohol use disorder: Status: Acute Problem details: With sequelae of thrombocytopenia, elevated LFTs, hepatomegaly. Ultrasound shows liver is abnormal. Imaging features suggest cirrhosis or other infiltrative disorder such as chronic hepatitis. No dominant focal mass and no intrahepatic biliary ductal dilation. Sludge within the gallbladder. No evidence of acute c holecystitis or common duct obstruction. Ascites. university services program associate consulted for CD resources ( says family is interested and would support this), patient on board to seek help on day of discharge. Nutrition consulted. (3) Pancytopenia: Status: Acute Problem details: In setting of alcohol use disorder. Will need further outpatient follow up with PCP. (4) Cirrhosis: Status: Acute Problem details: In setting of alcohol use disorder, with abnormal LFTs, thrombocytopenia, US imaging. Will need outpatient follow-up with PCP/GI. (5) Hypokalemia: Status: Resolved Problem details: Resolved following supplement DS: Summary Hospital Course Hospital Course: [age] year old male past medical history significant for alcohol use disorder, described as secretive by , was admitted to the medical floor for acute alcohol intoxication with withdrawals. Course of care and details as noted above. Patient is discharged with resources for alcohol use disorder support. Should have close follow-up with PCP, GI for abnormal labs and liver findings. Remainder of chronic medical comorbidities were monitored and managed with home medications. Status at Discharge Overall status at discharge: patient is back to baseline Time Spent with Patient Time attestation: Total time spent providing and/or coordinating discharge services: Time spent: Greater than 30 minutes Exam Narrative: Exam Narrative: PHYSICAL EXAM General: Pleasant, conversant, NAD Cardiovascular: RRR Pulmonary: No dyspnea Neurological: Alert, answering questions appropriately Skin: Warm, dry. Const: Vital Signs, click to edit/add: Vital Signs - 24 hr 01/26/24 10:53 01/26/24 11:00 01/26/24 14:26 Temperature 98.0 F 98.0 F 97.8 F Pulse Rate Pulse Rate [Left P ulse Oximeter] 72 72 76 Respiratory Rate 20 20 20 Blood Pressure [Ri ght Arm] 161/87 H 161/87 H 157/98 H Pulse Oximetry 96 96 95 Oxygen Delivery Me thod Room Air Room Air Room Air 01/26/24 15:00 01/26/24 15:00 01/26/24 15:00 Temperature 97.8 F Pulse Rate Pulse Rate [Left P ulse Oximeter] 76 76 Respiratory Rate 20 20 20 Blood Pressure [Ri ght Arm] 157/98 H Pulse Oximetry 95 95 Oxygen Delivery Me thod Room Air Room Air 01/26/24 15:00 01/26/24 18:00 01/26/24 19:00 Temperature 97.8 F 97.6 F Pulse Rate 67 Pulse Rate [Left P ulse Oximeter] 71 78 Respiratory Rate 20 18 Blood Pressure [Ri ght Arm] 159/82 H 166/117 H Pulse Oximetry 97 97 Oxygen Delivery Me thod Room Air Room Air 01/26/24 19:00 01/26/24 23:00 01/26/24 23:00 Temperature 97.6 F Pulse Rate 67 Pulse Rate [Left P ulse Oximeter] 78 78 Respiratory Rate 18 18 Blood Pressure [Ri ght Arm] 166/117 H Pulse Oximetry 97 Oxygen Delivery Me thod Room Air 01/26/24 23:00 01/26/24 23:00 01/26/24 23:00 Temperature 98.1 F 98.1 F Pulse Rate Pulse Rate [Left P ulse Oximeter] 84 84 Respiratory Rate 18 18 18 Blood Pressure [Ri ght Arm] 141/80 H 141/80 H Pulse Oximetry 96 96 96 Oxygen Delivery Me thod Room Air Room Air Room Air 01/27/24 03:10 01/27/24 03:10 01/27/24 07:00 Temperature 98 F 98 F 98.4 F Pulse Rate Pulse Rate [Left P ulse Oximeter] 80 80 81 Respiratory Rate 18 18 18 Blood Pressure [Ri ght Arm] 147/83 H 147/83 H 140/80 H Pulse Oximetry 97 97 96 Oxygen Delivery Me thod Room Air Room Air Room Air 01/27/24 08:59 01/27/24 09:00 01/27/24 09:00 Temperature Pulse Rate 74 Pulse Rate [Left P ulse Oximeter] Respiratory Rate 18 18 Blood Pressure [Ri ght Arm] Pulse Oximetry 96 Oxygen Delivery Me thod Room Air Room Air DS: Data Data Completed and Pending Labs on day of discharge: Labs from last 24 hours 01/27/24 06:03 WBC 2.49 L RBC 3.69 L Hgb 12.7 L Hct 36.9 L MCV 100 MCH 34 MCHC 34 Plt Count 24 L* Diff Slide Review Acceptable Review Sodium 135 Potassium 4.0 Chloride 109 Carbon Dioxide 23 Anion Gap 3 L BUN 3 L Creatinine 0.8 Estimated Creat Clear 58.21 Estimated GFR 95 Glucose 119 H Calcium 9.0 Total Bilirubin 2.7 H Direct Bilirubin 0.2 AST 94 H ALT 44 Alkaline Phosphatase 87 Total Protein 6.3 Albumin 3.4 Discharge Plan Discharge Disposition: Home, Self-Care Date of Admission: 01/26/24 00:02 Attending Provider on Discharge: Jazz Myles Primary Care Provider: Chris Graff Condition: Improved Anticipated Discharge Date/Time: 01/27/24 09:56 Discharge Medications: No Action No Known Home Medications Discharge Orders: Discharge Order (Routine); Ordered 01/27/24 Ordered By: Jazz Myles Patient Education: Cirrhosis of the Liver (GEN), Ascites (GEN), Pancytopenia (GEN) Additional Instructions: Resources for alcohol abuse have been provided for you. You will need to follow up with a PCP for ongoing management of your pancytopenia, cirrhosis, ascites all which are related to your drinking. Your PCP can help to arrange a consult with GI if necessary. Activity Level: No Restrictions Discharge Diet: Regular Follow Up Appointments: Chris Graff MD [Primary Care Provider] - 02/02/24 9:45 am ([facility] for follow up ) Forms: Aras Info Instructions
--- NOTE | 2024-01-27 13:32 | PC.NURSE ---
Discharge Note: The patient discharged home with his this AM. Alcohol cessation handouts were provided by social work. I also discussed overall habits to help reduce his ascites and preventing more liver damage. I addressed the S/S to come in for if he experiences them or his noticed. F/u appointment with new PCP next week. Addressed nicotine as well.. he plans to use gum and reduce smoking. All discharge teaching was provided to the patient and his . Janet STORM BSN
== END 2024-01-27 11:31 | disposition home or self-care (01) | DRG 897 ==
LOC: ED 22:37 → MEDSURG 22:55
PROVIDERS: Physician Assistant; Admitting Provider Family Medicine; Emergency Provider Student in an Organized Health Care Education/Training Program; PCP Family Medicine; Visit Provider Family Medicine
DX: F10.239 Alcohol dependence with withdrawal, unspecified (principal); D61.818 Other pancytopenia; F10.288 Alcohol dependence with other alcohol-induced disorder; K70.31 Alcoholic cirrhosis of liver with ascites; K70.0 Alcoholic fatty liver; F10.229 Alcohol dependence with intoxication, unspecified; Y90.3 Blood alcohol level of 60-79 mg/100 ml; D69.6 Thrombocytopenia, unspecified; E87.6 Hypokalemia; R42 Dizziness and giddiness; R00.0 Tachycardia, unspecified; E86.0 Dehydration; I10 Essential (primary) hypertension; R25.1 Tremor, unspecified; F17.210 Nicotine dependence, cigarettes, uncomplicated
CPT/HCPCS: 36415; 76705; 80048; 80076; 82077; 83605; 83735; 84484; 85025; 85027; 85610; 97116; 97161; 97165; 97530; 99283; 99284; 99285; G0378; A9270; C9113; J2060; J2560; J3411; J3475; J7030

== ENCOUNTER 2024-02-02 10:10 | Outpatient (CLI) | payer MEDICARE, SELFPAY | END 2024-02-02 10:11 | disposition home or self-care (01) | LOC: NFLDREF 10:12 | PROVIDERS: PCP Family Medicine; Visit Provider Family Medicine | DX: I10 Essential (primary) hypertension (principal); D61.818 Other pancytopenia; F10.90 Alcohol use, unspecified, uncomplicated; K74.60 Unspecified cirrhosis of liver; R79.89 Other specified abnormal findings of blood chemistry | CPT/HCPCS: 80053 ==

== ENCOUNTER 2024-12-31 18:20 | Emergency (ER) | payer MEDICARE, SELFPAY ==
[2024-12-31] VITALS (19 sets, daily range): BP systolic 161–186; BP diastolic 74–105; PULSE 84–118; RESP 12–33; TEMP 37.2; O2SAT 93–100; BMI 20.1
--- NOTE | 2024-12-31 19:04 | CRLHL7_ITS ---
For Patients: As a result of the Century Cures Act, medical imaging exams and procedure reports are released immediately into your electronic medical record. You may view this report before your referring provider. If you have questions, please contact your health care provider. INDICATION: Right hip pain, fall TECHNIQUE: Single view pelvis with AP and lateral views of the bright hip. COMPARISONS: None available. 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 Subtle nondisplaced lucency through the greater trochanter. No other displaced or periprosthetic fractures. Degenerative changes of the bilateral sacroiliac joints. The soft tissues are unremarkable. IMPRESSION: Demonstration of a subtle nondisplaced lucency through the tip of the greater trochanter which may represent a nondisplaced fracture. No evidence of additional periprosthetic fracture or dislocation. Dictated by Trevor Starkey MD @ 12/31/2024 7:58:28 PM (Electronically Signed)
[2024-12-31] MEDS: THIAMINE 100 MG TABLET PO (19:35)
[2024-12-31] MEDS: LACTATED RINGERS 1000 ML 1,000 ML IV (19:36)
[2024-12-31 19:46] LABS: Basophils Absolute Auto 0.03 K/uL (0.00-0.30); Basophils Percent Auto 0.4 % (0.0-3.0); Eosinophils Absolute Auto 0.03 K/uL (0.00-0.50); Eosinophils Percent Auto 0.4 % (0.0-7.0); Hematocrit 43.1 % (37.0-53.0); Hemoglobin* 15.4 gm/dL (13.5-17.5); Immature Granulocytes Abs Auto 0.01 K/uL (0.00-0.30); Immature Granulocytes Pct Auto 0.1 %; Lymphocytes Percent Auto 17.2 % (20-44); Mean Corpuscular HGB Conc 36 gm/dL (32-36); Mean Corpuscular Hemoglobin 33 pg (26-34); Mean Corpuscular Volume 93 fL (80-100); Monocytes Percent Auto 8.9 % (0.0-11.0); Platelet Count* 77 K/uL (140-440); RDW Coefficient of Variation % 13.2 % (11.5-15.5); Red Blood Count 4.63 m/uL (4.30-5.90); White Blood Count* 7.78 K/uL (4.50-11.00)
[2024-12-31 19:49] LABS: Slide Review Reflex No
--- NOTE | 2024-12-31 19:52 | ED.GENADULT ---
HPI - General Adult General Date Seen: 12/31/24 Chief complaint: Fall/Minor Trauma Stated complaint: Hip pain after fall Time Seen by Provider: 12/31/24 19:10 Source: patient Mode of arrival: ambulatory Limitations: no limitations History of Present Illness HPI narrative: Patient is a 69-year-old male presenting to the emergency department for right hip pain. He states fell yesterday onto his right hip. Did have hip replacement of this hip about 20 years ago. Has been unable to bear weight so has been using crutches to move around. States pain is not always there but is very tender to palpation states. He does not know why he fell. Denies any lightheadedness, dizziness prior to the fall. Closed remember tripping over anything. Does not know all why he fell. Of note he is also very tremulous. His states he is like this whenever he has a drink alcohol for a few days. He has a history of cirrhosis and has been drinking 1-2 pt of hard liquor a week for the past several years. Has previously been admitted for alcohol withdrawal to this hospital. She states he looks like he typically does when he has got a day or 2 after drinking. He denies any hallucinations this time. His at had any seizures. Denies fevers, chills, chest pain, shortness of breath, abdominal pain, weakness, numbness. Related Data Home Medications ?Medication ?Instructions ?Recorded ?Confirmed No Known Home Medications 01/25/24 12/31/24 Allergies Allergy/AdvReac Type Severity Reaction Status Date / Time prednisone Allergy Severe Avascular Verified 04/26/24 08:01 Necrosis Review of Systems Status of ROS: Reports: 10 or more systems reviewed and unremarkable except as noted in History and below PFSH [facility] Surgical History History of lumbar laminectomy ?Z98.890 - Other specified postprocedural states (ICD-10) History of total left hip arthroplasty ?Z96.642 - Presence of left artificial hip joint (ICD-10) History of colonoscopy (09/15/20) ?Z98.890 - Other specified postprocedural states (ICD-10) History of left inguinal hernia repair (08/11/20) ?Z98.890 - Other specified postprocedural states (ICD-10) ?Z87.19 - Personal history of other diseases of the digestive system (ICD-10) Family History Father Colon cancer, Onset Age: 60 Mother Diabetes Social History Narrative: Recently moved to [place] from [place], lives with Chata. Daily ETOH use. What is your current living situation?: I presently have a place to live Problems where you live: no known problems Problems where you live details: N/A In the past 12 months, utilities in danger of being shut off: no In past 12 months, lack of transportation kept you from medical appts, meetings, work, or getting things needed for daily living: no In the past 12 mos, have been you worried that your food would run out before you had money to buy more?: never true In the past 12 mos, the food you bought just didn't last and you didn't have money to buy more?: never true Highest level of school completed/degree received: 12th grade, no diploma Smoking Status: Current every day smoker What tobacco products do you use: cigarettes Smoking packs per day: 0.5 Smoking cigarettes per day: 10.0 How often do you have a drink containing alcohol: 4 or more times a week Alcohol type: hard liquor Alcohol type details: 1 pint vodka/day How many standard drinks containing alcohol do you have on a typical day: 5 or 6 How often do you have six or more drinks on one occasion: Weekly AUDIT-C Alcohol total score: 9 Non-prescribed substance use: denies use Caffeine: Yes How often does anyone, including family, friends and others, physically hurt you: never How often does anyone, including family, friends and others, insult or talk down to you: never How often does anyone, including family, friends and others, threaten you with harm: never How often does anyone, including family, friends and others, scream or curse at you: never service: No Exam Narrative: Exam Narrative: Const: Well-nourished, Well-developed, in mild distress Eyes: PERRL, no conjunctival injection, and symmetrical lids HENT: Atraumatic external nose and ears. Moist mucous membranes. Neck: Symmetric, trachea midline, No thyromegaly. CVS: Tachycardic, No murmurs or gallops. Peripheral pulses 2+ and equal in all extremities RESP: Unlabored respiratory effort. Clear to auscultation bilaterally. GI: Nontender/Nondistended, No rebound or guarding. MSK:Extremities w/o deformity, decreased range of motion to right hip secondary to pain. Tenderness noted to right lateral hip around the greater trochanter region Skin: Warm, Dry. No rashes or lesions. Neuro: Normal Muscle tone, No focal neurological deficits. Tremulous Psych: Awake, Alert, & Oriented x3. Appropriate mood and affect. Const: Vital Signs, click to edit/add: Vital Signs - 24 hr 12/31/24 18:55 12/31/24 19:32 12/31/24 19:33 Temperature 99 F Pulse Rate 116 H 107 H Pulse Rate [Pulse Oximeter] 118 H Respiratory Rate 20 Blood Pressure 186/105 H Blood Pressure [Ri ght Upper Arm] 165/90 H Pulse Oximetry 98 99 99 [facility] 12/31/24 19:45 12/31/24 20:00 12/31/24 20:02 Temperature Pulse Rate 103 H 93 91 Pulse Rate [Pulse Oximeter] Respiratory Rate 30 H 19 33 H Blood Pressure 170/90 H Blood Pressure [Ri ght Upper Arm] Pulse Oximetry 99 100 100 [facility] 12/31/24 20:15 12/31/24 20:30 12/31/24 20:31 Temperature Pulse Rate 84 88 87 Pulse Rate [Pulse Oximeter] Respiratory Rate 26 H 21 22 Blood Pressure 167/84 H Blood Pressure [Ri ght Upper Arm] Pulse Oximetry 97 95 95 [facility] 12/31/24 20:32 12/31/24 20:45 12/31/24 21:02 Temperature Pulse Rate 88 96 96 Pulse Rate [Pulse Oximeter] Respiratory Rate 25 H Blood Pressure Blood Pressure [Ri ght Upper Arm] Pulse Oximetry 95 95 94 [facility] 12/31/24 21:15 12/31/24 21:30 12/31/24 21:32 Temperature Pulse Rate 89 95 91 Pulse Rate [Pulse Oximeter] Respiratory Rate 14 Blood Pressure 161/86 H Blood Pressure [Ri ght Upper Arm] Pulse Oximetry 93 93 96 [facility] 12/31/24 21:45 12/31/24 22:00 12/31/24 22:02 Temperature Pulse Rate 90 92 Pulse Rate [Pulse Oximeter] Respiratory Rate 25 H 12 16 Blood Pressure 164/74 H Blood Pressure [Ri ght Upper Arm] Pulse Oximetry 95 96 Oxygen Delivery Me thod 12/31/24 22:03 Temperature Pulse Rate 95 Pulse Rate [Pulse Oximeter] Respiratory Rate Blood Pressure Blood Pressure [Ri ght Upper Arm] Pulse Oximetry 95 Oxygen Delivery Me thod Course Vital Signs Vital signs: Initial Vital Signs Temperature 99 F 12/31/24 18:55 Temperature Source Temporal Artery Scan 12/31/24 18:55 Pulse Rate 118 H 12/31/24 18:55 Respiratory Rate 20 12/31/24 18:55 Blood Pressure 165/90 H 12/31/24 18:55 Blood Pressure Mean 115 H 12/31/24 18:55 Blood Pressure Position Supine 12/31/24 18:55 Pulse Oximetry 98 12/31/24 18:55 Oxygen Delivery Method Room Air 12/31/24 18:55 Vital Signs Temperature 99 F 12/31/24 18:55 Pulse Rate 118 H 12/31/24 18:55 Respiratory Rate 20 12/31/24 18:55 Blood Pressure 165/90 H 12/31/24 18:55 Pulse Oximetry 98 12/31/24 18:55 Oxygen Delivery Method Room Air 12/31/24 18:55 Temperature 99 F 12/31/24 18:55 Pulse Rate 95 12/31/24 22:03 Respiratory Rate 16 12/31/24 22:02 Blood Pressure 164/74 H 12/31/24 22:02 Pulse Oximetry 95 12/31/24 22:03 Oxygen Delivery Method Room Air 12/31/24 18:55 Medications Administered Medications: Discontinued Medications Generic Name Dose Route Start Last Admin Trade Name Freq PRN Reason Stop Dose Admin Lactated Ringer's 1,000 mls @ 1,000 mls/hr 12/31/24 19:31 12/31/24 20:44 Lactated Ringers 1000 Ml IV 12/31/24 20:30 Infused .Q1H ONE Infusion Lorazepam 1 mg 12/31/24 19:48 12/31/24 19:54 Lorazepam 2 Mg/Ml Inj IVP 12/31/24 19:49 1 mg ONCE ONE Administration Thiamine HCl 100 mg 12/31/24 19:31 12/31/24 19:35 Thiamine 100 Mg Tablet PO 12/31/24 19:32 100 mg ONCE ONE Administration Medical Decision Making MDM Narrative Medical decision making narrative: Patient is a 69-year-old male presenting for right hip pain. Unsure what caused the fall but right hip x-ray was ordered in triage. When I evaluated the patient I have some concern for alcohol withdrawal at this time also. He is tachycardic and hypertensive. Will order CIWA. Will also order EKG, troponin, CBC, CMP, magnesium. Given a L of fluids because he states he is feeling dehydrated and some thiamine. Lab work returned showing no concerning abnormalities. Has mildly elevated LFTs similar previous lab work. Initial CIWA was 12 and this came down the to after 1 mg of Ativan. Initially was tachycardic but his tachycardia has improved after the Ativan. Oxygen saturation has been normal. X-ray shows a possible fracture. CT was ordered showing a comminuted nondisplaced fracture. I spoke to Orthopedics about this and they state this is nonsurgical and patient can follow-up outpatient. Patient was able to ambulate to toe-touch weight-bearing per Orthopedics recommendations. He is no longer tremulous is not appear to be withdrawing. I believe the patient will start drinking again once he is discharged in I do not plan on sending him home with any benzodiazepines for possible withdrawal. Spoke to patient with pain medication he just wants to use Tylenol and ibuprofen at this time. Patient will be discharged Lab Data Labs: Lab Results 12/31/24 Range/Units 19:40 WBC 7.78 (4.50-11.00) K/uL RBC 4.63 (4.30-5.90) m/uL Hgb 15.4 (13.5-17.5) gm/dL Hct 43.1 (37.0-53.0) % MCV 93 (80-100) fL MCH 33 (26-34) pg MCHC 36 (32-36) gm/dL RDW Coeff of Jolynn 13.2 (11.5-15.5) % Plt Count 77 L (140-440) K/uL Neut % (Auto) 73.0 H (42.0-72.0) % Lymph % (Auto) 17.2 L (20-44) % [place] % (Auto) 8.9 (0.0-11.0) % Eos % (Auto) 0.4 (0.0-7.0) % Baso % (Auto) 0.4 (0.0-3.0) % Neut # (Auto) 5.70 (1.7-7.0) K/uL Lymph # (Auto) 1.30 (0.90-2.90) K/uL [place] # (Auto) 0.70 (0.00-0.90) K/UL Eos # (Auto) 0.03 (0.00-0.50) K/uL Baso # (Auto) 0.03 (0.00-0.30) K/uL Abs Immat Gran (auto) 0.01 (0.00-0.30) K/uL Imm/Tot Granulo (auto) 0.1 % Sodium 137 (135-149) mmol/L Potassium 4.1 (3.6-5.1) mmol/L Chloride 99 (96-114) mmol/L Carbon Dioxide 19 L (20-32) mmol/L Anion Gap 19 H (7-15) mEq/L BUN 12 (7-30) mg/dL Creatinine 0.9 (0.5-1.5) mg/dL Estimated Creat Clear 57.38 Estimated GFR 91 ml/min Glucose 104 (60-115) mg/dL Calcium 9.9 (8.4-10.6) mg/dL Magnesium 1.8 (1.5-2.6) mg/dL Total Bilirubin 2.4 H (0.1-1.5) mg/dL AST 92 H (12-35) U/L ALT 98 H (4-50) U/L Alkaline Phosphatase 91 (40-150) U/L Total Protein 7.9 (6.0-8.3) g/dL Albumin 4.7 (3.3-5.0) g/dL POC Troponin I 0.00 L (0.01-0.04) ng/ml Imaging Data Right hip x-ray: Attestation: I have reviewed the pertinent imaging results. Radiologist's impression: Demonstration of a subtle nondisplaced lucency through the tip of the greater trochanter which may represent a nondisplaced fracture. No evidence of additional periprosthetic fracture or dislocation. Dictated by Trevor Starkey MD @ 12/31/2024 7:58:[address]: Attestation: I have reviewed the pertinent imaging results. Radiologist's impression: Preliminary Report: PRELIMINARY IMPRESSION: 1. Comminuted nondisplaced fracture is present involving the right greater trochanter. 2. Bilateral total hip arthroplasties are present. These cause extensive beam hardening artifacts that limits evaluation of the adjacent osseous and soft tissue structures. Dictated by Michael Darnell MD @ 12/31/2024 9:15:14 PM ECG Data Attestation: I personally reviewed and interpreted this ECG as follows: Prior ECG tracings: available for review Interpretation: Sinus tachycardia with a rate of 119 beats per minute, normal intervals, normal axis, no ST or T-wave abnormalities Discharge Plan Discharge Clinical Impression: Closed fracture of right hip Qualifiers: Encounter type: initial encounter Qualified Code(s): S72.001A - Fracture of unspecified part of neck of right femur, initial encounter for closed fracture Alcohol withdrawal Qualifiers: Complication of substance-induced condition: uncomplicated Qualified Code(s): F10.930 - Alcohol use, unspecified with withdrawal, uncomplicated Condition: Improved Instructions: Crutch Instructions (ED), Alcohol Withdrawal (DC) Prescriptions: No Action No Known Home Medications Follow Up/Referrals: Chris Graff MD [Primary Care Provider] -
[2024-12-31] MEDS: LORazepam 2 MG/ML inj 1 MG IVP (19:54)
[2024-12-31 19:58] LABS: Albumin* 4.7 g/dL (3.3-5.0); Chloride* 99 mmol/L (96-114); Sodium* 137 mmol/L (135-149)
[2024-12-31 19:59] LABS: Potassium* 4.1 mmol/L (3.6-5.1)
[2024-12-31 20:01] LABS: Alanine Aminotransferase* 98 U/L (4-50); Alkaline Phosphatase* 91 U/L (40-150); Anion Gap 19 mEq/L (7-15); Aspartate Amino Transferase* 92 U/L (12-35); Bilirubin Total* 2.4 mg/dL (0.1-1.5); Blood Urea Nitrogen* 12 mg/dL (7-30); Calcium* 9.9 mg/dL (8.4-10.6); Carbon Dioxide* 19 mmol/L (20-32); Creatinine* 0.9 mg/dL (0.5-1.5); Est. Creatinine Clearance* 57.38; Estimated Glomerular Filt Rate 91 ml/min; Glucose* 104 mg/dL (60-115); Total Protein* 7.9 g/dL (6.0-8.3)
[2024-12-31 20:02] LABS: Magnesium* 1.8 mg/dL (1.5-2.6)
--- NOTE | 2024-12-31 20:05 | CRLHL7_ITS ---
For Patients: As a result of the Century Cures Act, medical imaging exams and procedure reports are released immediately into your electronic medical record. You may view this report before your referring provider. If you have questions, please contact your health care provider. EXAM: CT OF THE RIGHT HIP, WITHOUT CONTRAST CLINICAL INDICATION: Right hip pain following fall. COMPARISON STUDIES: 12/31/2024 radiographs. TECHNICAL: Non-contrast CT of the pelvis with axial images. Sagittal oblique and coronal oblique reformatted images of the right hip created. FINDINGS: RIGHT HIP: Right RUDDY. Acute comminuted and displaced fracture the greater tuberosity. No intertrochanteric extension the fracture. No fracture the stem. No evidence for loosening osteolysis. No hip joint effusion or juxta-articular fluid collection. OSSEOUS STRUCTURES: No additional fractures are evident. No worrisome osseous lesion. OTHER JOINT SPACES: Left Hip: Left RUDDY. No joint effusion or juxta-articular fluid collection. No evidence for loosening or osteolysis. SI Joints: Degenerative changes in the SI joints, left greater than right. Degenerative anterior bridging osteophytes on the left. Lumbar Spine: Degenerative changes at the lower lumbar interspaces. MUSCLES AND TENDONS: No intramuscular mass or hematoma. No muscle atrophy. No retracted tendon tear. SOFT TISSUES: No subcutaneous edema, fluid collection or hematoma. INTRAPELVIC CONTENTS: No free fluid or hematoma. Surgical clips in the pelvis. Small fat containing umbilical hernia. IMPRESSION: 1. Right RUDDY. Acute comminuted nondisplaced fracture of the right greater tuberosity. No intertrochanteric extension. 2. No right hip joint effusion or juxta-articular fluid collection. 3. Uncomplicated left RUDDY. 4. Degenerative changes in the SI joints and lumbar spine. 5. Surgical clips in the pelvis. 6. Small fat containing umbilical hernia. Please note that all CT scans at this facility use dose modulation, iterative reconstruction, and/or weight-based dosing when appropriate to reduce radiation dose to as low as reasonably achievable. Dictated by Antelmo Galloway MD @ 01/01/2025 7:52:45 AM (Electronically Signed)
== END 2024-12-31 22:46 | disposition home or self-care (01) ==
PROVIDERS: Emergency Provider Student in an Organized Health Care Education/Training Program; PCP Family Medicine
DX: S72.114A Nondisplaced fracture of greater trochanter of right femur, initial encounter for closed fracture (principal)
CPT/HCPCS: 36415; 73502; 73700; 80053; 83735; 84484; 85025; 93005; 96374; 99284; 99285; A9270; J2060; J7120

== ENCOUNTER 2025-08-29 14:53 | Outpatient (CLI) | payer MEDICARE, SELFPAY | END 2025-08-29 14:54 | disposition home or self-care (01) | LOC: NFLDREF 14:54 | PROVIDERS: PCP Family Medicine; Visit Provider Family Medicine | DX: Z01.818 Encounter for other preprocedural examination (principal) | CPT/HCPCS: 80053 ==

== ENCOUNTER 2025-09-06 10:29 | Day surgery (SDC) | payer MEDICARE, SELFPAY ==
[2025-09-06] VITALS (11 sets, daily range): BP systolic 125–145; BP diastolic 64–82; PULSE 78–101; RESP 14–18; TEMP 36.3–36.7; O2SAT 95–98; BMI 21.6
[2025-09-06] MEDS: SODIUM CHLORIDE 0.9 % (FLUSH) 10 ML SYRINGE IVF (11:05)
[2025-09-06] MEDS: LACTATED RINGERS 1000 ML 1,000 ML 100 ML IV (11:05)
[2025-09-06] MEDS: [UNRECOGNIZED DRUG - OTHER] INJECTION (12:05)
--- NOTE | 2025-09-06 12:28 | P.ANES_ITS ---
Anesthesia Charges Start Date/Time Anesthesia Start Date: 09/06/25 Anesthesia Start Time: 11:52 Stop Date/Time Anesthesia Stop Date: 09/06/25 Anesthesia Stop Time: 12:22 Summary Extremes of Age - Over 70 or under 1: MATERIAL PREPARATION WORKER Coding CPT Codes CPT Codes: ANESTH PROCEDURE ON MOUTH - 18413 ([id number]) P3 - PATIENT W/SEVERE SYS DISEASE, QK - MANAGER CONSUMER 2-4 CNCRNT ANES PROC, QX - MATERIAL PREPARATION WORKER SVC W/ MD MED DIRECTION Additional Codes: Summary - Extremes of Age - Over 70 or under 1: MATERIAL PREPARATION WORKER ([id number])
--- NOTE | 2025-09-06 12:28 | W.ANESCHARGE ---
Anesthesia Charges Start Date/Time Anesthesia Start Date: 09/06/25 Anesthesia Start Time: 11:52 Stop Date/Time Anesthesia Stop Date: 09/06/25 Anesthesia Stop Time: 12:22 Summary Extremes of Age - Over 70 or under 1: PLANT PULLER Coding CPT Codes CPT Codes: ANESTH PROCEDURE ON MOUTH - 26633 ([id number]) P3 - PATIENT W/SEVERE SYS DISEASE, QK - STOCK HOUSE WORKER 2-4 CNCRNT ANES PROC, QX - PLANT PULLER SVC W/ MD MED DIRECTION Additional Codes: Summary - Extremes of Age - Over 70 or under 1: PLANT PULLER ([id number])
--- NOTE | 2025-09-06 12:45 | P.ANES_ITS ---
Anesthesia Charges Start Date/Time Anesthesia Start Date: 09/06/25 Anesthesia Start Time: 11:52 Stop Date/Time Anesthesia Stop Date: 09/06/25 Anesthesia Stop Time: 12:22 Summary Extremes of Age - Over 70 or under 1: MDA Coding CPT Codes CPT Codes: ANESTH PROCEDURE ON MOUTH - 22302 ([id number]) QK - REAL ESTATE ACCOUNTANT 2-4 CNCRNT ANES PROC, QX - SALES REPRESENTATIVE GAS SERVICE SVC W/ MD MED DIRECTION, P3 - PATIENT W/SEVERE SYS DISEASE Additional Codes: Summary - Extremes of Age - Over 70 or under 1: MDA ([id number])
--- NOTE | 2025-09-06 12:54 | W.PM.ENTPROC ---
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 A talc a clip was used in the midline of the tongue to pull the tongue forward. The cheek was retracted. A 1 mL of Marcaine with epi was injected beneath the the lesion. Needlepoint cautery was used to go around the white all white areas. And then the surface layer of mucosa without involving the muscular was removed. There was minimal bleeding. Two 3-0 Vicryl sutures were placed to approximate the anterior mucosal edges with a posterior left open for drainage. The patient procedure well was taken recovery in satisfactory condition. Blood loss was Surgeon: Fer Leblanc MD
== END 2025-09-06 13:28 | disposition home or self-care (01) ==
LOC: OR 10:30
PROVIDERS: PCP Family Medicine; Visit Provider Otolaryngology
PROC: (CPT 41113; principal; 2025-09-06 11:45)
DX: K14.8 Other diseases of tongue (principal)
CPT/HCPCS: 41113; 00170; 88305; 99100; J0330; J2371; J2405; J2704; J3010; J3490; J7120

== ENCOUNTER 2025-09-13 08:43 | Day surgery (SDC) | payer MEDICARE, SELFPAY ==
[2025-09-13] VITALS (11 sets, daily range): BP systolic 162–182; BP diastolic 78–96; PULSE 75–90; RESP 10–16; TEMP 36.2–37.2; O2SAT 95–99; BMI 21.4
[2025-09-13] MEDS: LACTATED RINGERS 1000 ML 1,000 ML 100 ML IV (08:55)
[2025-09-13] MEDS: SODIUM CHLORIDE 0.9 % (FLUSH) 10 ML SYRINGE IVF (09:14)
[2025-09-13] MEDS: BUPIVACAINE 0.5% 30 ML INJECTION (10:08)
--- NOTE | 2025-09-13 10:35 | P.ANES_ITS ---
Anesthesia Charges Start Date/Time Anesthesia Start Date: 09/13/25 Anesthesia Start Time: 09:54 Stop Date/Time Anesthesia Stop Date: 09/13/25 Anesthesia Stop Time: 10:36 Summary Extremes of Age - Over 70 or under 1: GLOST KILN OPERATOR Coding CPT Codes CPT Codes: ANESTH PROCEDURE ON MOUTH - 99172 ([id number]) P3 - PATIENT W/SEVERE SYS DISEASE, QK - MANAGER SYSTEMS 2-4 CNCRNT ANES PROC, QX - GLOST KILN OPERATOR SVC W/ MD MED DIRECTION Additional Codes: Summary - Extremes of Age - Over 70 or under 1: GLOST KILN OPERATOR ([id number])
--- NOTE | 2025-09-13 10:35 | W.ANESCHARGE ---
Anesthesia Charges Start Date/Time Anesthesia Start Date: 09/13/25 Anesthesia Start Time: 09:54 Stop Date/Time Anesthesia Stop Date: 09/13/25 Anesthesia Stop Time: 10:36 Summary Extremes of Age - Over 70 or under 1: LEAD TELLER Coding CPT Codes CPT Codes: ANESTH PROCEDURE ON MOUTH - 89810 ([id number]) P3 - PATIENT W/SEVERE SYS DISEASE, QK - DIRECTOR OPERATIONS 2-4 CNCRNT ANES PROC, QX - LEAD TELLER SVC W/ MD MED DIRECTION Additional Codes: Summary - Extremes of Age - Over 70 or under 1: LEAD TELLER ([id number])
--- NOTE | 2025-09-13 11:44 | P.ANES_ITS ---
Anesthesia Charges Start Date/Time Anesthesia Start Date: 09/13/25 Anesthesia Start Time: 09:54 Stop Date/Time Anesthesia Stop Date: 09/13/25 Anesthesia Stop Time: 10:36 Summary Extremes of Age - Over 70 or under 1: MDA Coding CPT Codes CPT Codes: ANESTH PROCEDURE ON MOUTH - 60458 ([id number]) QK - TEACHER OF THE DEAF/HARD OF HEARING 2-4 CNCRNT ANES PROC, QX - INTEGRITY DIRECTOR SVC W/ MD MED DIRECTION, P3 - PATIENT W/SEVERE SYS DISEASE Additional Codes: Summary - Extremes of Age - Over 70 or under 1: MDA ([id number])
--- NOTE | 2025-09-13 12:32 | W.PM.ENTPROC ---
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 A towel clip placed in the midline was used to retract the tongue anteriorly. The area surrounding the resection sites was injected with the usual local solution with adrenaline. An anterior margin was obtained 1st there was a small area of what appeared to be residual leukoplakia that was removed and then a separate anterior margin was obtained. There were no other suspicious areas but separate margins were then taken inferiorly superiorly and posteriorly. Bleeding was controlled with suction cautery. Three 3-0 Vicryl sutures were placed at the anterior aspect of the resection and the posterior aspect was left open. The patient procedure well was taken recovery in satisfactory condition. Blood loss was less than 20 mL. Surgeon: Fer Leblanc MD
== END 2025-09-13 11:44 | disposition home or self-care (01) ==
LOC: OR 08:44
PROVIDERS: PCP Family Medicine; Visit Provider Otolaryngology
PROC: (CPT 41113; principal; 2025-09-13 10:00)
DX: C01 Malignant neoplasm of base of tongue (principal)
CPT/HCPCS: 41113; 00170; 99100; A9270; J0330; J0665; J1100; J2405; J2704; J3010; J7120